=== PATIENT | female | born 1960 | race Two or more races ===

== ENCOUNTER 2024-06-19 08:57 | Emergency (ER) | payer OTHER ==
[~2024-06-19] VITALS: Ht 170.2 cm; Wt 77.0 kg
--- NOTE | 2024-06-19 09:12 | ECG ---
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
--- NOTE | 2024-06-19 09:47 | ED.PDOC ---
History of Present Illness HPI Comments 64 y/o F, Hx of HLD, appendectomy, and hysterectomy, presents with c/o abdominal pain, nausea, and constipation, today. Patient endorses on unprovoked onset of symptoms that has been, progressively, worsening since yesterday. Patient reports on pain being non-radiating and diffused, nausea intermittent, and constipated with LBM being yesterday morning. Patient comments on no additional relevant or pertinent Hx, such as recent travel, sick contact, spoiled food intake, or injuries. She denies having any vomiting, diarrhea, urinary symptoms, fever, chills, or other associated symptoms or modifiers at this time. 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 Hx Family History Family History: Unknown Social History Smoker: Non-Smoker Alcohol: Denies ETOH Use Drugs: Denies Drug Use Lives In: Home Gastrointestinal: reports: abdominal pain, constipated, nausea All Other Systems: Reviewed and Negative (negative unless otherwise stated above or in HPI) Physical Exam General Appearance: Moderate Distress HEENT: Normal ENT Inspection, Pharynx Normal, TMs Normal Neck: Full Range of Motion, Non-Tender, Normal, Normal Inspection Respiratory: Chest Non-Tender, Lungs Clear, No Accessory Muscle Use, No Respiratory Distress, Normal Breath Sounds Cardiovascular: No Edema, No JVD, No Murmur, No Gallop, Normal Peripheral Pulses, Regular Rate/Rhythm Breast Exam: Deferred Gastrointestinal: No Organomegaly, Non Tender, No Pulsatile Mass, Normal Bowel Sounds, Soft Genitalia: Deferred Pelvic: Deferred Rectal: Deferred Extremities: No calf tenderness, Normal capillary refill, Normal inspection, Normal range of motion, Non-tender, No pedal edema Musculoskeletal : Apperance: Normal 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 Was a procedure done?: No EKG EKG : Pulse Rate (adult): 65 [place]: Normal Cardiac Rhythm: NSR Block: None Hypertrophy: None ST: Normal Differential Dx Considerations may include: gastritis, gastroenteritis, acute abdomen, viral syndrome, spoiled food, nephrolithiasis, ovarian cysts/torsion, UTI's, cholecystitis, diverticulitis, SBO, constipation X-Ray, Labs, Meds, VS Vital Signs Date Time Temp Pulse Resp B/P (MAP) Pulse Ox O2 Delivery O2 Flow Rate FiO2 06/19/24 11:43 169/77 06/19/24 11:30 91 14 169/77 (107) 99 06/19/24 10:42 177/67 06/19/24 10:39 97.8 74 17 177/67 (103) 98 97.8 06/19/24 10:39 74 17 98 Room Air* 0 21 06/19/24 09:47 65 06/19/24 09:11 98.4 73 18 207/78 (121) 98 06/19/24 09:09 65 Lab Test 06/19/24 09:45 06/19/24 09:30 Range/Units Urine Color Light-yellow Yellow Urine Clarity Clear Clear Urine pH 6.0 5.0-9.0 [address]rine [address] [place] 1.011 1.001-1.035 Urine Protein Negative Negative Urine Ketones Negative Negative Urine Blood 2+ H Negative /uL Urine Nitrite Negative Negative Urine Bilirubin Negative Negative Urine Urobilinogen Normal Negative mg/dL Urine Leukocyte Esterase Negative Negative /uL Urine RBC 46 0 - 4 /hpf Urine WBC <1 0 - 5 /hpf Urine Squamous Epithelial Cells Few <5 /hpf Urine Bacteria None seen None Seen /hpf Urine Mucus Few None Seen Urine Glucose Normal Normal mg/dL White Blood Count 10.1 4.4-10.8 10^3/uL Red Blood Count 5.00 4.0-5.20 10^6/uL Hemoglobin 15.0 12.2-16.2 g/dL Hematocrit 46.6 H 36.0-46.0 % Mean Corpuscular Volume 93.3 80.0-100.0 fL Mean Corpuscular Hemoglobin 30.0 28.0-32.0 pg Mean Corpuscular Hemoglobin Concent 32.2 32.0-36.0 g/dL Red Cell Distribution Width 13.4 11.8-14.3 % Platelet Count 202 140-450 10^3/uL Mean Platelet Volume 8.4 6.9-10.8 fL Neutrophils (%) (Auto) 86.3 H 37.0-80.0 % Lymphocytes (%) (Auto) 9.7 L 10.0-50.0 % Monocytes (%) (Auto) 3.6 0.0-12.0 % Eosinophils (%) (Auto) 0.2 0.0-7.0 % Basophils (%) (Auto) 0.2 0.0-2.0 % Neutrophils # (Auto) 8.7 H 1.6-8.6 10 ^3/uL Lymphocytes # (Auto) 1.0 0.4-5.4 10 ^3/uL Monocytes # (Auto) 0.4 0-1.3 10 ^3/uL Eosinophils # (Auto) 0 0-0.8 10 ^3/uL Basophils # (Auto) 0 0-0.2 10 ^3/uL Nucleated Red Blood Cells 0.1 % Sodium Level 138 136-145 mmol/L Potassium Level 3.8 3.5-5.1 mmol/L Chloride Level 110 H 98-107 mmol/L Carbon Dioxide Level 21 20-31 mmol/L Anion Gap 7 5-15 Blood Urea Nitrogen 10 9-23 mg/dL Creatinine 0.74 0.550-1.02 mg/dL Glomerular Filtration Rate Calc 90 >90 mL/min BUN/Creatinine Ratio 13.5 10.0-20.0 Serum Glucose 149 H 74-106 mg/dL Calcium Level 9.5 8.7-10.4 mg/dL Current Medications Medications (Trade) Dose Ordered Sig/Yolis Route Start Time Stop Time Status Last Admin Clonidine HCl (Catapres Tablet) 0.2 mg ONCE ONCE PO 06/19/24 10:30 06/19/24 10:31 DC 06/19/24 10:42 Belladonna Alkaloids/ Phenobarbital ( Elixir) 10 ml ONCE ONCE PO 06/19/24 10:30 06/19/24 10:31 DC 06/19/24 10:44 Al Hydrox/Mg Hydrox/Simethicone (Maalox Plus) 30 ml ONCE ONCE PO 06/19/24 10:30 06/19/24 10:31 DC 06/19/24 10:42 Lidocaine HCl (Xylocaine 2% Viscous) 15 ml ONCE ONCE PO 06/19/24 10:30 06/19/24 10:31 DC 06/19/24 10:42 Patient alert. Complaining of abdominal pain. Vitals stable. Answering all questions. Blood pressure elevated. EKG reviewed does not show any acute changes. Was given clonidine. Reviewed her history. Explained to the patient. Continue cardiac monitoring. Patient states that she is feeling much better. Urinalysis shows blood. Possible passage of kidney stone. No sign of any infection. Blood pressure control. Patient insists on leaving. Abdomen is soft nontender. Was told to follow up with her primary care physician. Was told to come back if there is any problem. Time of 1ST Reevaluation: 09:40 Reevaluation 1ST: Improved Patient Education/Counseling: Diagnosis, Treatment Family Education/Counseling: No Family Present Departure 1 Departure Time of Disposition: 10:18 Impression: Primary Impression: Hypertensive urgency Additional Impression: Kidney stone Disposition: 01 HOME / SELF CARE / HOMELESS Condition: Good Discharged With: Self Critical Care Note Critical Care Time?: Yes (45 min-critical care time only) Stability Stability form required: No Heart Score Heart Score: Heart Score Response (Comments) Value History Slightly Suspicious 0 EKG Normal 0 Age 45-64 1 Risk Factors >3 or Hx ASHD 2 Troponin Normal limit 0 Total 3 I personally scribed for NEO JAEGER MD ([email or web address]) on 06/19/24 at 09:47. Electronically submitted by Rambo Bae ([email or web address]). NEO JAEGER MD Jun 19, 2024 09:47
[2024-06-19 09:48] LABS: Basophils # (auto) 0 10 ^3/uL (0-0.2); Basophils % (auto) 0.2 % (0.0-2.0); Eosinophils # (auto) 0 10 ^3/uL (0-0.8); Eosinophils % (auto) 0.2 % (0.0-7.0); Hematocrit 46.6 % (36.0-46.0); Lymphocytes % (auto) 9.7 % (10.0-50.0); Mean Corpuscular Hgb Conc. 32.2 g/dL (32.0-36.0); Mean Corpuscular Volume 93.3 fL (80.0-100.0); Monocytes # (auto) 0.4 10 ^3/uL (0-1.3); Monocytes % (auto) 3.6 % (0.0-12.0); Neutrophils # (auto) 8.7 10 ^3/uL (1.6-8.6); Neutrophils % (auto) 86.3 % (37.0-80.0); Nucleated Red Blood Cells % 0.1 %; Platelet Count (auto) 202 10^3/uL (140-450); Red Cell Distribution Width 13.4 % (11.8-14.3); White Blood Cell 10.1 10^3/uL (4.4-10.8)
[2024-06-19 10:02] LABS: Potassium 3.8 mmol/L (3.5-5.1); Sodium 138 mmol/L (136-145)
[2024-06-19 10:03] LABS: Anion Gap 7 (5-15); Calcium 9.5 mg/dL (8.7-10.4); Carbon Dioxide 21 mmol/L (20-31)
[2024-06-19 10:04] LABS: Urine Bacteria None Seen /hpf (None Seen)
[2024-06-19 10:08] LABS: BUN/Creatinine Ratio 13.5 (10.0-20.0); Blood Urea Nitrogen 10 mg/dL (9-23)
[2024-06-19 10:13] LABS: Chloride 110 mmol/L (98-107); Glucose 149 mg/dL (74-106)
[2024-06-19 10:39] VITALS: PULSE 74; RESP 17; TEMP 97.8; O2SAT 98
[2024-06-19] MEDS: LIDOCAINE VISCOUS 2% 15ML UD PO ONE (10:42)
[2024-06-19] MEDS: cloNIDine HCL 0.1 MG TAB PO ONE (10:42)
[2024-06-19] MEDS: MAALOX PLUS or MAALOX 30 ML PO ONE (10:42)
[2024-06-19] MEDS: DONNATAL 5ml ORAL Elix (BELLADONNA ALK-PHENOBARB) PO ONE (10:44)
[2024-06-19 11:00] LABS: Urine Blood 2+ /uL (Negative); Urine Clarity Clear (Clear); Urine Color Light-Yellow (Yellow); Urine Mucus FEW (None Seen); Urine Protein, UAD Negative (Negative); Urine Specific Gravity 1.011 (1.001-1.035); Urine Squamous Epithelial Cell FEW /hpf (<5); Urine Urobilinogen Normal (Negative); Urine WBC <1 /hpf (0 - 5)
[2024-06-19 11:30] VITALS: BP 169/77; PULSE 91; RESP 14; O2SAT 99
== END 2024-06-19 12:14 | disposition home or self-care (01) ==
LOC: ER 08:57
DX: N20.0 Calculus of kidney (principal); I16.0 Hypertensive urgency; E78.5 Hyperlipidemia, unspecified; K59.00 Constipation, unspecified; Z90.49 Acquired absence of other specified parts of digestive tract; Z90.710 Acquired absence of both cervix and uterus
CPT/HCPCS: 36415; 80048; 81001; 85025; 93005